=== PATIENT | male | born 1945 | race Caucasian/White ===

== ENCOUNTER → 2017-06-09 14:42 | Outpatient (CLI) | payer MEDICARE, OTHER, SELFPAY ==
[2017-06-09 16:04] LABS: Platelet Count 118 K/mm3 (150-450)
[2017-06-09 16:12] LABS: Anion Gap 8 (5-15); BUN 11 mg/dL (7-18); BUN/Creat Ratio 10.3 RATIO (10-20); Calcium,Total 7.9 mg/dL (8.5-10.1); Chloride 95 mmol/L (98-107); Creatinine, Serum 1.07 mg/dL (0.70-1.30); EST Glomerular Filtration Rate 72 mL/min (>60); Est Glom Filt Rate - Afr Amer 87 mL/min (>60); Glucose 85 mg/dL (74-106); Potassium 3.8 mmol/L (3.5-5.1); Sodium Level 129 mmol/L (136-145)
[2017-06-09 16:22] LABS: International Normalized Ratio 1.8; Prothrombin Time (Protime)PT. 21.3 SECONDS (11.7-14.9)
[2017-06-09 16:23] LABS: Partial Thromboplast Time 43.9 Seconds (24.1-36.2)
== END ==
PROVIDERS: Family Provider Internal Medicine Infectious Disease; PCP Internal Medicine Infectious Disease; Visit Provider Internal Medicine Gastroenterology
DX: K74.60 Unspecified cirrhosis of liver (principal)
CPT/HCPCS: 36415; 80048; 85049; 85610; 85730

== ENCOUNTER → 2017-06-15 06:39 | Outpatient (CLI) | payer SELFPAY ==
[2017-06-14 14:21] LABS: Platelet Count 87 K/mm3 (150-450)
[2017-06-14 14:28] LABS: International Normalized Ratio 1.7; Partial Thromboplast Time 43.8 Seconds (24.1-36.2); Prothrombin Time (Protime)PT. 19.9 SECONDS (11.7-14.9)
[2017-06-15] VITALS (7 sets, daily range): BP systolic 96–120; BP diastolic 57–63; PULSE 53–69; RESP 16–18; TEMP 35.8–36.6; O2SAT 98–100; BMI 25.1
--- NOTE | 2017-06-15 14:00 | US_ITS ---
PROCEDURE: Ultrasound guided paracentesis. DATE OF EXAMINATION: June 15, 2017.. INDICATION: Male, 71 years old. Ascites. PHYSICIAN: Hugo Travis M.D. TECHNIQUE: The risks, benefits, and alternatives to the procedure were explained to the patient. The specific risks of bleeding, infection, and damage to bowel were detailed and accepted. Witnessed informed consent was obtained. The abdomen was ultrasonographically surveyed. An appropriate pocket of fluid was identified at the left lower quadrant. The skin were cleaned and prepped in the usual sterile fashion. Using ultrasound guidance, the peritoneal cavity was accessed with a 5-Romanian paracentesis needle/catheter system. The trocar was removed. A total of 3800 ml of shan-colored fluid were removed from the peritoneal cavity. The catheter was removed and a sterile dressing was applied. The procedure was well tolerated. US/Paracentesis with US IMPRESSION: Ultrasound guided paracentesis. Electronically Signed: Hugo Travis MD at 12:28 EST Tel [phone], Service support ,
== END ==
PROVIDERS: Family Provider Internal Medicine Infectious Disease; PCP Internal Medicine Infectious Disease; Visit Provider Internal Medicine Gastroenterology
DX: R18.8 Other ascites (principal); K74.60 Unspecified cirrhosis of liver; K72.90 Hepatic failure, unspecified without coma
CPT/HCPCS: 36415; 36430; 49083; 85049; 85610; 85730; 86900; J7040; P9017; A4216

== ENCOUNTER → 2017-06-30 10:16 | Outpatient (CLI) | payer SELFPAY ==
[2017-06-29 12:44] LABS: Platelet Count 107 K/mm3 (150-450)
[2017-06-29 13:00] LABS: International Normalized Ratio 1.7; Prothrombin Time (Protime)PT. 20.4 SECONDS (11.7-14.9)
[2017-06-29 13:01] LABS: Partial Thromboplast Time 44.3 Seconds (24.1-36.2)
[2017-06-30 10:30] VITALS: BP 124/75; PULSE 65; RESP 18; TEMP 36.6; O2SAT 100; BMI 26.7
[2017-06-30 11:49] VITALS: BP 115/63; PULSE 61; RESP 18; TEMP 36.2; O2SAT 99
[2017-06-30 12:48] VITALS: BP 119/72; PULSE 64; RESP 18; TEMP 36.4; O2SAT 100
[2017-06-30 13:13] VITALS: BP 129/72; PULSE 64; RESP 16; TEMP 36.2; O2SAT 97
[2017-06-30 14:13] VITALS: BP 148/72; PULSE 66; RESP 16; TEMP 36.3; O2SAT 98
--- NOTE | 2017-06-30 14:40 | NURSING ---
FFP COMPLETED, TRANSPORTED TO ULTRASOUND FOR PARACENTESIS VIA WHEELCHAIR
--- NOTE | 2017-06-30 14:41 | US_ITS ---
PROCEDURE: ULTRASOUND GUIDED PARACENTESIS CLINICAL HISTORY: Male, 71 years old. ASCITES CONSENT: The risks, benefits and alternatives to the procedure were explained to the patient, and the patient agreed to the procedure and signed the consent. SEDATION: Local Anesthesia STERILE BARRIER TECHNIQUE: The following sterile barrier precautions were used during the procedure: hand hygiene; use of 2% chlorhexidine aseptic; use of a cap, mask, sterile gown, sterile gloves, sterile full body drape, and a large sterile sheet. PROCEDURE/TECHNIQUE: The risks, benefits, and alternatives to the procedure were explained to patient, and the patient agreed to the procedure and signed a consent form for the procedure. TECHNIQUE: Under the ultrasound guidance using sterile technique and after infiltration of the skin and subcutaneous soft tissues with 10 mL of lidocaine 1% a 5 Polish drainage catheter is introduced in the lower part of the abdomen. 3700 mL of fluid were removed sample sent to lab for evaluation. The patient tolerated the procedure there was no immediate complication. FINDINGS: FLUID PRE-PROCEDURE There is posterior enhancement. The findings appear anechoic. There is no loculation. Volume measurement: 3700 ml. FLUID POST-PROCEDURE Amount of fluid drained: 3700 ml. US/Paracentesis with US IMPRESSION: Successful ultrasound-guided paracentesis. Electronically Signed: Dena Farnsworth MD at 9:40 EDT Tel , Service support ,
[2017-06-30 14:44] VITALS: BP 124/74; PULSE 63; RESP 16; TEMP 35.8; O2SAT 99
== END ==
PROVIDERS: Family Provider Internal Medicine Infectious Disease; PCP Internal Medicine Infectious Disease; Visit Provider Internal Medicine Gastroenterology
DX: K72.90 Hepatic failure, unspecified without coma (principal); R18.8 Other ascites
CPT/HCPCS: 36415; 36430; 49083; 85049; 85610; 85730; 86900; J7050; P9017; A4216

== ENCOUNTER 2017-07-07 13:54 | Observation (INO) | payer MEDICARE, OTHER, SELFPAY ==
[2017-07-07] VITALS (15 sets, daily range): BP systolic 122–140; BP diastolic 64–76; PULSE 60–72; RESP 16–18; TEMP 36.1–36.5; O2SAT 96–100; BMI 26.6
[2017-07-07] MEDS: Cefazolin 2 GM in 0.9% Normal Saline 100 ML IV (12:43)
[2017-07-07] MEDS: Bupivacaine 0.25% 30 ML Vial (12:57)
--- NOTE | 2017-07-07 13:25 | OP.PCM_ITS ---
Report of Operation Date of Procedure: 07/07/17 Pre-Operative Diagnosis: intractable ascites, liver failure, portal hypertension Post-Operative Diagnosis: intractable ascites, liver failure, portal hypertension Surgery/Procedure Performed:: tunnelled peritoneal catheter (Pleuravac) catheter placement with ultrasound automotive electrician helper: None Type of Anesthesia:: MAC Anesthesiologist: Nicho Martínez - ASA4 Specimen's removed: 6 L ascites Estimated Blood Loss (mL): minimal Fluids Replaced: 100- crystalloid, 2 Units FFP Description of Procedure: The patient was brought to the operating suite. The abdomen was marked in the holding area and the patient concurred this was the planned operative site. Sign in was performed verifying patient, site, position, skip antibiotic prophylaxis-2 g of Ancef and DVT prophylaxis with SCDs. Ultrasound was used to evaluate the left and right lower abdominal spaces. Ascitic fluid was noted throughout but the left lower quadrant site seemed to have the best pocket of fluid and best stability to avoid significantly dilated abdominal wall vessels. The planned site which was marked on the skin Following IV sedation, left/right chest and upper lateral abdomen were prepped and draped in the usual fashion. Timeout was performed verifying patient, site , position. Local anesthetic was injected and a Seldinger needle was used to access the left abdominal space without difficulty. a guidewire was inserted and advanced into the pleural space. Local anesthetic was injected and incision made for the catheter exit site. Next the catheter was tunneled from the skin exit site to the wire. Dilators were placed over the wire until the largest dilator with introducer sheath were placed. The wire and dilator removed. The catheter was fed through the introducer suture sheath and adjusted to the edge of the pleural surface with the fenestrations . There was good return of ascites fluid. was aspirated and sent for cytology, culture, cell count, and body fluid panel. The Pleurx catheter was affixed to an adapter and attached to a Pleur-evac at 20 cm suction. A total of approximately 6000 cc of fluid was drained. The catheter was secured with a 3-0 silk suture at the skin exit site. The peritoneal insertion site skin was closed with 4-0 Biosyn interrupted subcuticular sutures. Dermabond was applied to the abdominal site. A dressing was applied. The joints were taped and a large dressing placed over the drain exit site.
--- NOTE | 2017-07-07 15:10 | NURSING ---
pt A&O x3, pt appears jaundiced, skin warm and dry, abdomen is soft/tender with obvious umpbilical hernia noted-catheter coming from upper right abdomen is unclamped and draining clear yellow fluid-clamped as dr scanlon ordered at this time-lungs clear but distant and diominished at this time pedal edema 2+right, 3+ left-pt voids 500 cc clear yellow urine in urinal at this time-taking clear po fluids-temp 98.2, resp 20, bp 126/68, hr 66, pox is 95% on room air-pt appears in no acute distress and resp. are easey and unlabored at this time-family aware of transport to hospice facilty and state we have been asking for that all day but no one would listen, they are agreeable to transfer-pt taking jello and yogurt without n/v-denies pain at this time
--- NOTE | 2017-07-07 15:17 | NURSING ---
report called to ilana at hospice inpt facility
== END 2017-07-07 15:28 | disposition hospice, inpatient (51) ==
LOC: MS3 13:54 → SDC 14:19
PROVIDERS: Admitting Provider Surgery; Family Provider Family Medicine; PCP Family Medicine; Visit Provider Surgery
PROC: (CPT 32550; principal; 2017-07-07 11:45)
DX: Z45.2 Encounter for adjustment and management of vascular access device (principal); K72.11 Chronic hepatic failure with coma; K70.31 Alcoholic cirrhosis of liver with ascites; K76.6 Portal hypertension; I25.10 Atherosclerotic heart disease of native coronary artery without angina pectoris; E78.5 Hyperlipidemia, unspecified; G47.33 Obstructive sleep apnea (adult) (pediatric); E03.9 Hypothyroidism, unspecified; Z79.899 Other long term (current) drug therapy; Z79.02 Long term (current) use of antithrombotics/antiplatelets; Z79.82 Long term (current) use of aspirin; Z87.891 Personal history of nicotine dependence; I11.0 Hypertensive heart disease with heart failure; I50.9 Heart failure, unspecified; K21.9 Gastro-esophageal reflux disease without esophagitis; Z85.828 Personal history of other malignant neoplasm of skin
CPT/HCPCS: 49418; 36415; 36430; 86900; J7040; P9017; C1729